=== PATIENT | female | born 1940 | race Caucasian/White ===

== ENCOUNTER → 2016-10-04 | Outpatient (CLI) | payer OTHER | LOC: FCPNEURO 21:30 | PROVIDERS: ATTEND Orthopaedic Surgery Foot and Ankle Surgery | DX: G47.33 Obstructive sleep apnea (adult) (pediatric) (principal) ==

== ENCOUNTER → 2017-03-31 | Outpatient (CLI) | payer OTHER | LOC: CIMAGING 16:04 | PROVIDERS: ATTEND Family Medicine | DX: R60.9 Edema, unspecified (principal) | CPT/HCPCS: 71020-PO ==

== ENCOUNTER → 2017-06-02 | Outpatient (CLI) | payer OTHER | LOC: FIMAGING 15:42 | PROVIDERS: ATTEND Family Medicine | DX: Z13.6 Encounter for screening for cardiovascular disorders (principal) | CPT/HCPCS: 0126T ==

== ENCOUNTER → 2018-07-15 | Outpatient (CLI) | payer OTHER | LOC: SUPIMAGING 16:23 | PROVIDERS: ATTEND Registered Nurse | DX: M25.532 Pain in left wrist (principal) | CPT/HCPCS: 73110-PN ==